=== PATIENT | male | born 1995 | race Caucasian/White ===

== ENCOUNTER 2017-11-15 03:42 | Emergency (ER) | payer BC ==
[~2017-11-15] VITALS: Ht 182.9 cm; Wt 85.0 kg
[2017-11-15 03:49] VITALS: Ht 182.9 cm; Wt 85.0 kg
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
[2017-11-15 04:27] LABS: CALCIUM 8.4 mg/dl (8.5-10.1); CREATININE 1.17 mg/dl (0.60-1.40); POTASSIUM 3.5 mmol/L (3.5-5.1)
[2017-11-15 04:31] VITALS: BP 133/95; PULSE 120; TEMP 36.8; O2SAT 98
== END 2017-11-15 04:51 | disposition home or self-care (01) ==
LOC: EDBD 03:42 → C.EDB 03:51
DX: T51.0X1A Toxic effect of ethanol, accidental (unintentional), initial encounter (principal)